=== PATIENT | male | born 1980 | race Hispanic/Latino ===

== ENCOUNTER 2018-12-04 12:12 | Emergency (ER) | payer SELFPAY ==
[2018-12-04] MEDS ORDERED: NA CHLORIDE 0.9% 1,000 ML ONE (12:51)
[2018-12-04 12:52] LABS: Absolute Monocytes 0.4 K/uL (0.1-1.3); Absolute Neutrophil 3.2 K/uL (1.8-8.0); Basophils % 0.8 % (0-1.3); Eosinophils % 3.2 % (0-4.4); Hematocrit 47.9 % (39.6-49.0); Lymphocytes % 33.9 % (15.3-44.8); Monocytes % 6.5 % (3.3-12.3); RBC Red Blood Cell Count 5.37 M/uL (4.33-5.43)
[2018-12-04] MEDS ORDERED: GLYCERIN PEDI RECTAL SUPP PR ONE (13:02)
--- NOTE | 2018-12-04 13:20 | RAD REPORT ---
EXAM DESCRIPTION: CT - Stone Protocol - 12/04/2018 1:08 pm CLINICAL HISTORY: Flank pain. suprapubic pain;Constipation COMPARISON: Abdomen Pelvis W Contrast dated 06/17/2016 TECHNIQUE: Axial images were obtained without oral or IV contrast. Lack of contrast limits solid org an and vascular assessment. The [id number] spans the entirety of the system partially obscuring uppermost abdomen and lung bases. Coronal reformatted images were obtained and reviewed. All CT scans are performed using dose optimization technique as appropriate and may include automated exposure control or mA/KV adjustment according to patient size. FINDINGS: The lower lung cortes are clear. Imaged portions of the liver and spleen show no suspicious findings on non-contrast imaging. The panc reas and adrenal glands are normal. No pathologic lymphadenopathy in the abdomen or pelvis. No urinary tract stones or obstructive uropathy. No bowel obstruction, free air, free fluid or abscess. Appendectomy.Small fat containing right inguin al hernia. No significant bony abnormality. IMPRESSION: No urinary tract stones or obstructive uropathy. No acute abdominopelvic finding.
[2018-12-04] MEDS ORDERED: FENTANYL CITR 100 MCG/2 ML ONE (13:48)
--- NOTE | 2018-12-04 13:48 | ER ---
Nurse's Notes [facility] Name: Mik Armas Age: 38 yrs Sex: Male : 1980 Arrival Date: 12/04/2018 Time: 12:15 Bed 20 Private MD: Diagnosis: Lower abdominal pain, unspecified;Constipation, unspecified;Diarrhea, unspecified Presentation: 12/04 12:26 Presenting complaint: Patient states: lower abd pain X 3 days, no BM X 2 days, pain is iw worse today, pt has hx of ulcers, denies vomiting. Transition of care: patient was not received from another setting of care. Onset of symptoms was December 02, 2018. Risk Assessment: Do you want to hurt yourself or someone else? Patient reports no desire to harm self or others. Initial Sepsis Screen: Does the patient meet any 2 criteria? No. Patient's initial sepsis screen is negative. Does the patient have a suspected source of infection? No. Patient's initial sepsis screen is negative. Care prior to arrival: None. 12:26 Method Of Arrival: Ambulatory iw 12:26 Acuity: TAYA 3 iw Historical: - Allergies: 12:29 No Known Allergies; iw - Home Meds: 12:29 None [Active]; iw - PMHx: 12:29 Ulcers; iw - PSHx: 12:29 Appendectomy; iw - Immunization history:: Adult Immunizations up to date. - Social history:: Smoking status: Patient/guardian denies using tobacco. - Ebola Screening: : Patient negative for fever greater than or equal to 101.5 degrees Fahrenheit, and additional compatible Ebola Virus Disease symptoms Patient denies exposure to infectious person Patient denies travel to an Ebola-affected area in the 21 days before illness onset No symptoms or risks identified at this time. Screenin:43 Abuse screen: Denies threats or abuse. Denies injuries from another. Nutritional aj screening: No deficits noted. Tuberculosis screening: No symptoms or risk factors identified. Fall Risk None identified. Assessment: 12:43 General: Appears in no apparent distress. uncomfortable, Behavior is calm, cooperative, aj appropriate for age. Pain: Complains of pain in right lower quadrant, left lower quadrant and anus. Respiratory: Airway is patent Respiratory effort is even, unlabored, Respiratory pattern is regular, symmetrical. GI: Abdomen is flat, Bowel sounds present X 4 quads. Abd is soft and non tender. Derm: Skin is intact, is healthy with good turgor, Skin is pink, warm \T\ dry. normal. Vital Signs: 12:26 BP 127 / 93; Pulse 75; Resp 16 S; Temp 97.9(O); Pulse Ox 98% on R/A; Weight 83.91 kg; iw Height 5 ft. 9 in. (175.26 cm); Pain 10/10; 12:26 Body Mass Index 27.32 (83.91 kg, 175.26 cm) iw ED Course: 12:15 Patient arrived in ED. mr 12:28 Triage completed. iw 12:29 Arm band placed on. iw 12:30 Sarahy Nemwan, RN is Primary Nurse. aj 12:31 Arabella Broussard FNP-C is PHCP. snw 12:31 Boom Cano MD is Attending Physician. snw 12:43 Patient has correct armband on for positive identification. aj 12:43 Inserted saline lock: 18 gauge in right upper arm, using aseptic technique. Blood aj collected. 12:58 Bladder scan completed. 200ml. aj 13:05 CT completed. Patient tolerated procedure well. Patient moved to CT via wheelchair. Patient moved back from CT. 13:09 CT Stone Protocol In Process Unspecified. EDMS Administered Medications: 12:43 Drug: NS 0.9% 1000 ml Route: IV; Rate: 1 bolus; Site: right upper arm; aj 13:33 Drug: fentaNYL (PF) 50 mcg Route: IVP; Site: right upper arm; aj Outcome: 13:47 Discharge ordered by . snw 14:18 Patient left the ED. ph Signatures: Dispatcher [employer] EDMS Sarahy Newman, Arabella Ca RN, FNP-C FNP-José Miguel Darleen Burgos, Emelina Brittany Sandoval RN RN iw Frieda Mcmillan RN RN ph Corrections: (The following items were deleted from the chart) 12:29 12:26 BP 127 / 93; Pulse 75bpm; Resp 16bpm; Spontaneous; Pulse Ox 98% RA; Temp 97.9F iw Oral; iw
--- NOTE | 2018-12-04 13:48 | EDPHYS ---
Physician Documentation [facility] Name: Mik Armas Age: 38 yrs Sex: Male : 1980 Arrival Date: 12/04/2018 Time: 12:15 Bed 20 Private MD: ED Physician Boom Cano HPI: 12/04 12:54 This 38 yrs old Male presents to ER via Ambulatory with complaints of snw Abdominal Pain. 12:54 The patient presents with abdominal pain suprapubic. Onset: The symptoms/episode snw began/occurred suddenly, this morning, and became worse and became persistent. The symptoms do not radiate. The symptoms are described as stabbing, steady. Severity of pain: At its worst the pain was moderate severe. The patient has experienced similar episodes in the past, multiple times. one year ago pt had a colonoscopy, dx with ulcerations in the colon, declines blood, declines crohn's dx. Pt Doctor told him multiple stools daily was normal but that he should not be experiencing pain. Pt states he has had an appendectomy. Bladder scanner reading of 200ml. Historical: - Allergies: 12:29 No Known Allergies; iw - Home Meds: 12:29 None [Active]; iw - PMHx: 12:29 Ulcers; iw - PSHx: 12:29 Appendectomy; iw - Immunization history:: Adult Immunizations up to date. - Social history:: Smoking status: Patient/guardian denies using tobacco. - Ebola Screening: : Patient negative for fever greater than or equal to 101.5 degrees Fahrenheit, and additional compatible Ebola Virus Disease symptoms Patient denies exposure to infectious person Patient denies travel to an Ebola-affected area in the 21 days before illness onset No symptoms or risks identified at this time. ROS: 12:53 Constitutional: Negative for fever, chills, and weight loss, Eyes: Negative for injury, snw pain, redness, and discharge, ENT: Negative for injury, pain, and discharge, Neck: Negative for injury, pain, and swelling, Cardiovascular: Negative for chest pain, palpitations, and edema, Respiratory: Negative for shortness of breath, cough, wheezing, and pleuritic chest pain, Back: Negative for injury and pain, : Negative for injury, bleeding, discharge, and swelling, MS/Extremity: Negative for injury and deformity, Skin: Negative for injury, rash, and discoloration, Neuro: Negative for headache, weakness, numbness, tingling, and seizure. 12:53 Abdomen/GI: Positive for abdominal pain, constipation, abdominal cramps, Negative for black/tarry stool, rectal pain, rectal bleeding. Exam: 12:52 Head/Face: Normocephalic, atraumatic. Eyes: Pupils equal round and reactive to light, snw extra-ocular motions intact. Lids and lashes normal. Conjunctiva and sclera are non-icteric and not injected. Cornea within normal limits. Periorbital areas with no swelling, redness, or edema. ENT: Nares patent. No nasal discharge, no septal abnormalities noted. Tympanic membranes are normal and external auditory canals are clear. Oropharynx with no redness, swelling, or masses, exudates, or evidence of obstruction, uvula midline. Mucous membranes moist. Neck: Trachea midline, no thyromegaly or masses palpated, and no cervical lymphadenopathy. Supple, full range of motion without nuchal rigidity, or vertebral point tenderness. No Meningismus. Chest/axilla: Normal chest wall appearance and motion. Nontender with no deformity. No lesions are appreciated. Cardiovascular: Regular rate and rhythm with a normal S1 and S2. No gallops, murmurs, or rubs. Normal PMI, no JVD. No pulse deficits. Respiratory: Lungs have equal breath sounds bilaterally, clear to auscultation and percussion. No rales, rhonchi or wheezes noted. No increased work of breathing, no retractions or nasal flaring. Back: No spinal tenderness. No costovertebral tenderness. Full range of motion. Skin: Warm, dry with normal turgor. Normal color with no rashes, no lesions, and no evidence of cellulitis. MS/ Extremity: Pulses equal, no cyanosis. Neurovascular intact. Full, normal range of motion. Neuro: Awake and alert, GCS 15, oriented to person, place, time, and situation. Cranial nerves II-XII grossly intact. Motor strength 5/5 in all extremities. Sensory grossly intact. Cerebellar exam normal. Normal gait. 12:52 Constitutional: The patient appears alert, awake, anxious. 12:52 Psych: Behavior/mood is anxious, Affect is animated. 12:52 Abdomen/GI: Inspection: abdomen appears normal, Bowel sounds: normal, Palpation: snw moderate abdominal tenderness, in the suprapubic area, severe abdominal tenderness. Vital Signs: 12:26 BP 127 / 93; Pulse 75; Resp 16 S; Temp 97.9(O); Pulse Ox 98% on R/A; Weight 83.91 kg; iw Height 5 ft. 9 in. (175.26 cm); Pain 10/10; 12:26 Body Mass Index 27.32 (83.91 kg, 175.26 cm) iw MDM: 12:31 Patient medically screened. snw 12:53 Data reviewed: vital signs, nurses notes. Data interpreted: Pulse oximetry: on room air snw is 75 %. Interpretation: normal. Counseling: I had a detailed discussion with the patient and/or guardian regarding: the historical points, exam findings, and any diagnostic results supporting the discharge/admit diagnosis, lab results. 12/04 12:32 Order name: Basic Metabolic Panel; Complete Time: 14:03 snw 12/04 12:32 Order name: CBC with Diff; Complete Time: 12:58 snw 12/04 12:32 Order name: Creatinine for Radiology; Complete Time: 13:23 snw 12/04 12:32 Order name: Hepatic Function; Complete Time: 14:03 snw 12/04 12:32 Order name: Lipase; Complete Time: 14:03 snw 12/04 12:50 Order name: CT Stone Protocol; Complete Time: 13:23 snw 12/04 12:32 Order name: IV Saline Lock; Complete Time: 12:43 snw 12/04 12:32 Order name: Labs collected and sent; Complete Time: 12:43 snw 12/04 12:50 Order name: Bladder Scanner; Complete Time: 12:57 snw Administered Medications: 12:43 Drug: NS 0.9% 1000 ml Route: IV; Rate: 1 bolus; Site: right upper arm; aj 13:33 Drug: fentaNYL (PF) 50 mcg Route: IVP; Site: right upper arm; aj Disposition: 15:54 Co-signature as Attending Physician, Boom Cano MD. rn Disposition: 12/04/18 13:47 Discharged to Home. Impression: Lower abdominal pain, unspecified, Constipation, unspecified, Diarrhea, unspecified. - Condition is Stable. - Discharge Instructions: Abdominal Pain, Adult, Constipation, Adult, Diarrhea, Adult, Irritable Bowel Syndrome, Adult, Rehydration, Adult. - Prescriptions for Bentyl 20 mg Oral Tablet - take 1 tablet by ORAL route every 6 hours As needed; 20 tablet. - Work release form, Medication Reconciliation Form, Thank You Letter, Antibiotic Education, Prescription Opioid Use form. - Follow up: Emergency Department; When: As needed; Reason: Worsening of condition. Follow up: Private Physician; When: 2 - 3 days; Reason: Recheck today's complaints, Continuance of care, Re-evaluation by your physician. Signatures: Dispatcher [employer] EDMS Sarahy Newman, RN RN Arabella Belcher, MANAGER ACCESS-C MANAGER ACCESS-Csnw Brittany Stevens, RN Boom Tilley MD MD rn Hall, Patricia, RN RN ph Corrections: (The following items were deleted from the chart) 14:18 13:47 12/04/2018 13:47 Discharged to Home. Impression: Lower abdominal pain, ph unspecified; Constipation, unspecified; Diarrhea, unspecified. Condition is Stable. Forms are Medication Reconciliation Form, Thank You Letter, Antibiotic Education, Prescription Opioid Use. Follow up: Emergency Department; When: As needed; Reason: Worsening of condition. Follow up: Private Physician; When: 2 - 3 days; Reason: Recheck today's complaints, Continuance of care, Re-evaluation by your physician. snw
[2018-12-04 13:54] LABS: ALT/SGPT 37 U/L (12-78); AST/SGOT 20 U/L (15-37); Albumin 3.9 g/dL (3.4-5.0); Alkaline Phosphatase 84 U/L (45-117); BUN Blood Urea Nitrogen 11 mg/dL (7-18); Bicarbonate 26 mmol/L (21-32); Bilirubin Direct < 0.1 mg/dL (0-0.2); Bilirubin Total 0.5 mg/dL (0.2-1.0); Glucose Level 90 mg/dL (74-106); Lipase 82 U/L (73-393); Potassium 3.8 mmol/L (3.5-5.1); Sodium Level 138 mmol/L (136-145)
[2018-12-04 15:48] VITALS: BP 127/93; TEMP 97.9; O2SAT 98
== END 2018-12-04 14:18 | disposition home or self-care (01) ==
LOC: ER 12:12
DX: K59.00 Constipation, unspecified (principal); R19.7 Diarrhea, unspecified
CPT/HCPCS: 36415; 74176; 76377; 80048; 80076; 83690; 85025; 96374; 99284; J3010; J7030